=== PATIENT | female | born 2000 | race Caucasian/White ===

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

== ENCOUNTER 2022-04-07 11:04 | Emergency (ER) | payer MEDICAID, OTHER ==
[~2022-04-07] VITALS: Ht 149.9 cm; Wt 74.8 kg
[2022-04-07 11:22] VITALS: BP_SYST 114
--- NOTE | 2022-04-07 11:31 | NUR ---
Dr Harper evaluating patient in the triage room
--- NOTE | 2022-04-07 13:09 | NUR ---
Patient given written and verbal discharge instructions and verbalizes understanding. ER MD discussed with patient the results and treatment provided. Patient in stable condition. ID arm band removed. Patient educated on pain management and to follow up with PMD. Pain Scale 0/10. Opportunity for questions provided and answered. Medication side effect fact sheet provided.
[2022-04-07 13:10] VITALS: BP_SYST 128
== END 2022-04-07 13:10 | disposition home or self-care (01) ==
LOC: SED 11:04
DX: S10.93XA Contusion of unspecified part of neck, initial encounter (principal); S40.011A Contusion of right shoulder, initial encounter; S70.11XA Contusion of right thigh, initial encounter; S30.0XXA Contusion of lower back and pelvis, initial encounter; V49.49XA Driver injured in collision with other motor vehicles in traffic accident, initial encounter; Y93.89 Activity, other specified; Y92.89 Other specified places as the place of occurrence of the external cause; Y99.8 Other external cause status
CPT/HCPCS: 72040-TC; 72100-TC; 99284

== ENCOUNTER 2022-07-19 23:06 | Emergency (ER) | payer SELFPAY ==
[~2022-07-19] VITALS: Ht 149.9 cm; Wt 77.1 kg
[2022-07-19 23:25] VITALS: BP_SYST 113
--- NOTE | 2022-07-20 00:05 | NUR ---
Patient to ER bed 3 to gown for evaluation. Side rails up. Report given to Colt CLAY(reg).
--- NOTE | 2022-07-20 00:07 | NUR ---
KELSEY Tafoya at bedside examining patient.
--- NOTE | 2022-07-20 00:07 | NUR ---
PT IS AA&OX4. AFEBRILE. NAD. C/O 9/10 LEFT AXILLARY PAIN. NOTED W/ BUMP W/ NO REDNESS. PER PT, SHE HAD A R AXILLARY CYST SURGICALLY REMOVED BY HER PREVIOUS PMD IN THE PAST. NKA. AMBULATORY W/ STEADY GAIT. SAFE & HAZARD FREE ENVIRONMENT PROVIDED.
[2022-07-20] MEDS ORDERED: IBUPROFEN 600 MG TABLET PO ONE (00:30)
[2022-07-20] MEDS ORDERED: AMOX-423 PO (00:50)
[2022-07-20] MEDS ORDERED: IBUP-1969 PO (00:50)
[2022-07-20 01:04] VITALS: BP_SYST 122
--- NOTE | 2022-07-20 01:06 | NUR ---
Patient given written and verbal discharge instructions and verbalizes understanding. ER MD discussed with patient the results and treatment provided. Patient in stable condition. ID arm band removed. Rx of AUGMENTIN & IBUPROFEN given. Patient educated on pain management and to follow up with PMD. Pain Scale 0/10. Opportunity for questions provided and answered. Medication side effect fact sheet provided.
== END 2022-07-20 01:04 | disposition home or self-care (01) ==
LOC: SED 23:06
DX: L73.2 Hidradenitis suppurativa (principal); M79.622 Pain in left upper arm; Z79.899 Other long term (current) drug therapy
CPT/HCPCS: 99283

== ENCOUNTER 2024-05-03 17:58 | Emergency (ER) | payer MEDICAID ==
[~2024-05-03] VITALS: Ht 152.4 cm; Wt 86.2 kg
[~2024-05-03 17:58] MED LIST: AMOX-423 PO; IBUP-1969 PO
[2024-05-03 18:07] VITALS: BP_SYST 125; PULSE 130; RESP 22; TEMP 98.3; O2SAT 97
[2024-05-03] MEDS: NACL 0.9% 1,000 ML IV ONE (19:36)
[2024-05-03] MEDS: ONDANSETRON HCL 4 MG/2 ML VIAL IVP ONE (19:37)
[2024-05-03 19:52] LABS: BASOPHILS % (AUTO) 0.1 % (0.0-2.0); EOSINOPHILS % (AUTO) 0.2 % (0.0-4.0); HEMATOCRIT 37.3 % (36-48); HEMOGLOBIN 13.3 g/dL (12.0-16.0); LYMPHOCYTES # (AUTO) 1.5 K/uL (1.0-5.5); LYMPHOCYTES % (AUTO) 7.1 % (20.5-51.5); MEAN CORPUSCULAR HEMOGLOBIN 32 pg (27-31); MEAN CORPUSCULAR HGB CONC 36 % (32-36); MEAN CORPUSCULAR VOLUME 88 fL (79.0-98.0); MONOCYTES # (AUTO) 0.8 K/uL (0.0-1.0); MONOCYTES % (AUTO) 4.1 % (1.7-9.3); NEUTROPHILS # (AUTO) 18.2 K/uL (1.8-7.7); NEUTROPHILS % (AUTO) 88.5 % (40.0-70.0); PLATELET COUNT (AUTO) 303 K/uL (130-430); RED BLOOD CELL COUNT(AUTO) 4.24 MIL/uL (4.2-6.2); RED CELL DISTRIBUTION WIDTH 13.6 % (9.0-15.0); WHITE BLOOD COUNT (AUTO) 20.5 K/uL (4.8-10.8)
[2024-05-03 20:11] LABS: ALBUMIN 3.2 g/dL (3.4-4.8); BILIRUBIN,DIRECT 0.1 mg/dL (0.0-0.3); CALCIUM 9.4 mg/dL (8.4-11.0); CREATININE 0.49 mg/dL (0.55-1.30); POTASSIUM 3.6 mmol/L (3.5-5.1); TOTAL BILIRUBIN 0.3 mg/dL (0.0-1.0); TOTAL PROTEIN, SERUM 7.3 g/dL (6.4-8.3)
[2024-05-03 20:28] VITALS: BP_SYST 125; PULSE 130; RESP 22; TEMP 98.3; O2SAT 97
[2024-05-03 21:11] LABS: BILIRUBIN,URINE NEGATIVE (NEGATIVE); BLOOD, URINE 1+ (NEGATIVE); COLOR,URINE YELLOW (YELLOW); GLUCOSE,URINE NEGATIVE (NEGATIVE); KETONES,URINE NEGATIVE (NEGATIVE); LEUKOCYTE ESTERASE ,URINE TRACE (NEGATIVE); NITRITE, URINE NEGATIVE (NEGATIVE); PH,URINE 6.5 (5.0-8.0); PROTEIN URINE NEGATIVE (NEGATIVE); UROBILINOGEN,URINE 0.2 (0.2-1.0)
[2024-05-03 21:12] LABS: CLARITY/URINE SLIGHTLY CLOUDY (CLEAR)
[2024-05-03] MEDS ORDERED: ONDA-8 TL (21:18)
[2024-05-03 21:39] LABS: BACTERIA,URINE MODERATE /HPF (None Seen)
== END 2024-05-03 20:28 | disposition home or self-care (01) ==
LOC: SED 17:58
DX: O21.0 Mild hyperemesis gravidarum (principal); Z3A.15 15 weeks gestation of pregnancy; Z79.899 Other long term (current) drug therapy; Z79.2 Long term (current) use of antibiotics
CPT/HCPCS: 99285; 96374; 76805; 96361; 80076; 80048; 81001; 83690; 85025; 87086; 36415; J2405; J7030; 81000; 81015